=== PATIENT | female | born 1980 | race Caucasian/White ===

== ENCOUNTER 2022-10-24 10:44 | Emergency (ER) | payer OTHER ==
[~2022-10-24] VITALS: Ht 157.5 cm; Wt 88.6 kg
[2022-10-24 14:57] VITALS: BP 129/88; PULSE 80; TEMP 98.6
== END 2022-10-24 14:57 | disposition home or self-care (01) ==
LOC: COL.ER 10:44
DX: R07.81 Pleurodynia (principal); W01.10XA Fall on same level from slipping, tripping and stumbling with subsequent striking against unspecified object, initial encounter; Y93.02 Activity, running; Y92.828 Other wilderness area as the place of occurrence of the external cause
CPT/HCPCS: J1885